=== PATIENT | male | born 1945 | race Caucasian/White ===

== ENCOUNTER 2017-10-15 09:11 | Inpatient (IN) | payer MEDICARE ==
[~2017-10-15] VITALS: Ht 175.3 cm; Wt 59.3 kg
[~2017-10-15 09:11] MED LIST: AMLO5TAB2 PO; APIX5TAB OR; FIN5T PO; OMEP20TA PO; SIMV-13 PO
[2017-10-15 09:52] LABS: Eosinophils # (auto) 0.1 uL; Hemoglobin 11.4 g/dL (13.5-17.5); Monocytes # (auto) 0.7 uL
[2017-10-15 09:53] LABS: Basophils # (auto) 0 uL; Basophils % (auto) 0.4 % (0.0-2.0); Eosinophils % (auto) 0.6 % (0.0-7.0); Hematocrit 35.7 % (41.0-53.0); Lymphocytes # (auto) 1.4 uL; Lymphocytes % (auto) 10.9 % (10.0-50.0); Mean Corpuscular Hemoglobin 28.5 pg (28.0-32.0); Monocytes % (auto) 5.4 % (0.0-12.0); Neutrophils # (auto) 10.8 uL; Neutrophils % (auto) 82.7 % (37.0-80.0); Platelet Count (auto) 480 10^3/uL (140-450); Red Blood Cells 4.02 10^6/uL (4.5-5.90); Red Cell Distribution Width 18.4 % (11.8-14.3)
[2017-10-15 10:08] LABS: Albumin 2.5 g/dL (3.4-5.0); BUN/Creatinine Ratio 14.6; Bilirubin, Total 0.3 mg/dL (0.2-1.0); Calcium 9.6 mg/dL (8.5-10.1); Potassium 3.3 mmol/L (3.5-5.1); Total Protein 7.4 g/dL (6.4-8.2)
[2017-10-15 10:15] LABS: Urine Bacteria MOD /hpf (None Seen); Urine Blood 3+ /uL (Negative); Urine Budding Yeast FEW /hpf (None Seen); Urine Hyaline Cast FEW /lpf (0 - 2); Urine Mucus FEW (None Seen); Urine WBC 348 /hpf (0 - 3); Urine WBC Clumps PRESENT /hpf (None Seen)
[2017-10-15] MEDS ORDERED: TEMAZEPAM 15 MG CAP PO PRN (12:00)
[2017-10-15] MEDS ORDERED: MORPHINE SULF INJ 2 MG/ML SYRINGE 1ML IV PRN ×2 (12:00)
[2017-10-15] MEDS ORDERED: ACETAMINOPHEN 500 MG TAB PO PRN (12:00)
[2017-10-15] MEDS ORDERED: LACTULOSE 20Gm/30ML SOLN PO PRN (12:00)
[2017-10-15] MEDS ORDERED: LORazepam 0.5 MG TAB PO PRN (12:00)
[2017-10-15] MEDS ORDERED: NITROGLYCERIN 0.4 MG SL TAB SL PRN (12:00)
[2017-10-15] MEDS ORDERED: PROMETHAZINE HCL 25 MG/ML 1ML IV PRN (12:00)
[2017-10-15] MEDS ORDERED: cefTRIAXone 1GM/10ml IVPUSH 10 ML IV ONE (12:00)
[2017-10-15 12:51] LABS: INR 1.14 (0.9-1.15); Partial Thromboplastin Time 35.9 sec (23.78-33.04); Prothrombin Time 12.1 sec (9.27-12.13)
[2017-10-15] MEDS: FLUCONAZOLE 100 MG TAB PO SCH (13:17)
[2017-10-15] MEDS: amLODIPine BESYLATE 5 MG TAB PO SCH (13:17)
[2017-10-15] MEDS: FINASTERIDE 5 MG TAB PO SCH (13:17)
[2017-10-15] MEDS: PANTOPRAZOLE 40 MG TAB PO SCH (13:18)
[2017-10-15] MEDS: LINEZOLID 600MG/300ML 300 ML IV SCH ×2 (13:28→21:38)
[2017-10-15 17:00] VITALS: BP 130/76
[2017-10-15] MEDS: ATORVASTATIN 20 MG TAB PO SCH (21:38)
[2017-10-15 22:00] VITALS: BP 120/70
[2017-10-16] MEDS: HYDROcodone-ACET 5/325MG TAB PO PRN ×2 (01:00→21:46)
[2017-10-16 05:00] VITALS: BP 143/64
[2017-10-16 06:30] LABS: Basophils # (auto) 0 uL; Basophils % (auto) 0.3 % (0.0-2.0); Eosinophils # (auto) 0.1 uL; Hematocrit 31.9 % (41.0-53.0); Hemoglobin 10.5 g/dL (13.5-17.5); Lymphocytes # (auto) 2.2 uL; Mean Corpuscular Hemoglobin 29.4 pg (28.0-32.0); Mean Corpuscular Volume 89.1 fL (80.0-100.0); Monocytes # (auto) 0.8 uL; Monocytes % (auto) 6.3 % (0.0-12.0); Neutrophils # (auto) 9.9 uL; Neutrophils % (auto) 75.4 % (37.0-80.0); Platelet Count (auto) 393 10^3/uL (140-450); Red Blood Cells 3.58 10^6/uL (4.5-5.90); Red Cell Distribution Width 18.9 % (11.8-14.3); White Blood Cell 13.1 10^3/uL (4.4-10.8)
[2017-10-16 06:50] LABS: BUN/Creatinine Ratio 18.7; Calcium 8.9 mg/dL (8.5-10.1); Potassium 3.4 mmol/L (3.5-5.1)
[2017-10-16 06:53] LABS: Bilirubin, Total 0.3 mg/dL (0.2-1.0); Total Protein 6.5 g/dL (6.4-8.2)
[2017-10-16 08:36] VITALS: BP 116/72
[2017-10-16] MEDS: PANTOPRAZOLE 40 MG TAB PO SCH (09:49)
[2017-10-16] MEDS: FLUCONAZOLE 100 MG TAB PO SCH (09:49)
[2017-10-16] MEDS: cefTRIAXone 1GM/10ml IVPUSH 10 ML IV SCH (09:49)
[2017-10-16] MEDS: LINEZOLID 600MG/300ML 300 ML IV SCH ×2 (09:50→21:44)
[2017-10-16] MEDS: amLODIPine BESYLATE 5 MG TAB PO SCH (09:50)
[2017-10-16] MEDS: FINASTERIDE 5 MG TAB PO SCH (09:50)
[2017-10-16] MEDS ORDERED: POTASSIUM CHL 20 Meq TABLET PO ONE (10:00)
[2017-10-16] MEDS ORDERED: IOHEXOL 350 MG/ML 100ML IJ ONE (13:12)
[2017-10-16] MEDS ORDERED: LIDOCAINE 2%HCL (LOCAL ANESTH.) INJ 10ml MDV ONE (13:12)
[2017-10-16 13:25] VITALS: BP 112/75
[2017-10-16] MEDS ORDERED: fentaNYL CITRATE 100 MCG/2 ML VL ONE (14:23)
[2017-10-16] MEDS ORDERED: MIDAZOLAM HCL 1MG/1ML-2 ML VIAL ONE (14:23)
[2017-10-16] MEDS: APIXABAN 5 MG TAB PO SCH ×2 (17:13→21:45)
[2017-10-16 17:48] VITALS: BP 124/75
[2017-10-16] MEDS: ATORVASTATIN 20 MG TAB PO SCH (21:45)
[2017-10-16 22:48] VITALS: BP 124/74
[2017-10-17 05:21] VITALS: BP 118/70
[2017-10-17 06:54] LABS: Basophils # (auto) 0 uL; Basophils % (auto) 0.4 % (0.0-2.0); Eosinophils # (auto) 0.2 uL; Eosinophils % (auto) 2.3 % (0.0-7.0); Hematocrit 31.1 % (41.0-53.0); Hemoglobin 10.4 g/dL (13.5-17.5); Lymphocytes # (auto) 2.3 uL; Mean Corpuscular Hemoglobin 29.7 pg (28.0-32.0); Mean Corpuscular Hgb Conc. 33.4 g/dL (32.0-36.0); Mean Corpuscular Volume 89.1 fL (80.0-100.0); Monocytes # (auto) 0.7 uL; Monocytes % (auto) 6.7 % (0.0-12.0); Neutrophils # (auto) 7.2 uL; Neutrophils % (auto) 68.6 % (37.0-80.0); Platelet Count (auto) 388 10^3/uL (140-450); Red Blood Cells 3.49 10^6/uL (4.5-5.90); Red Cell Distribution Width 18.5 % (11.8-14.3); White Blood Cell 10.5 10^3/uL (4.4-10.8)
[2017-10-17 07:07] LABS: BUN/Creatinine Ratio 18.2; Calcium 8.8 mg/dL (8.5-10.1); Potassium 3.5 mmol/L (3.5-5.1)
[2017-10-17 08:00] VITALS: BP 122/74
[2017-10-17] MEDS: cefTRIAXone 1GM/10ml IVPUSH 10 ML IV SCH (09:20)
[2017-10-17] MEDS: FINASTERIDE 5 MG TAB PO SCH (09:37)
[2017-10-17] MEDS: FLUCONAZOLE 100 MG TAB PO SCH (09:37)
[2017-10-17] MEDS: APIXABAN 5 MG TAB PO SCH (09:38)
[2017-10-17] MEDS: amLODIPine BESYLATE 5 MG TAB PO SCH (09:40)
[2017-10-17] MEDS: PANTOPRAZOLE 40 MG TAB PO SCH (10:15)
[2017-10-17] MEDS: LINEZOLID 600MG/300ML 300 ML IV SCH (10:20)
[2017-10-17 12:11] VITALS: BP 110/69
[2017-10-17] MEDS: HYDROcodone-ACET 5/325MG TAB PO PRN (13:33)
[2017-10-17 15:40] VITALS: BP 110/69
[2017-10-17 17:00] VITALS: BP 106/67
== END 2017-10-17 19:50 | disposition home or self-care (01) | DRG 854 ==
LOC: EDBD 09:11 → ER 09:11 → TELE 09:12 → TELE-CENTR 16:48 → CENTRAL 10-16 18:12
PROVIDERS: ADMIT Internal Medicine; ATTEND Internal Medicine
PROC: 06H03DZ Insertion of Intraluminal Device into Inferior Vena Cava, Percutaneous Approach (ICD-10-PCS; principal; 2017-10-16)
PROC: B5191ZZ Fluoroscopy of Inferior Vena Cava using Low Osmolar Contrast (ICD-10-PCS; 2017-10-16)
DX: A41.9 Sepsis, unspecified organism (principal); E44.0 Moderate protein-calorie malnutrition; I82.401 Acute embolism and thrombosis of unspecified deep veins of right lower extremity; Z68.1 Body mass index [BMI] 19.9 or less, adult; N30.91 Cystitis, unspecified with hematuria; I11.0 Hypertensive heart disease with heart failure; I50.9 Heart failure, unspecified; N13.9 Obstructive and reflux uropathy, unspecified; N21.0 Calculus in bladder; N20.0 Calculus of kidney; N28.1 Cyst of kidney, acquired; E87.6 Hypokalemia; Z85.118 Personal history of other malignant neoplasm of bronchus and lung; Z82.49 Family history of ischemic heart disease and other diseases of the circulatory system
CPT/HCPCS: 36415; 37191; 37619; 51702; 71045; 74176; 75825; 76937; 80048; 80053; 81001; 84484; 85025; 85610; 85730; 87081; 87086; 93005; 96374; 97110; 97163; 99152; A6257; J0696; J2001; J2250